=== PATIENT | male | born 1990 | race Caucasian/White ===

== ENCOUNTER 2019-02-04 21:14 | Emergency (ER) | payer MEDICAID ==
[~2019-02-04] VITALS: Ht 193 cm; Wt 107.5 kg
[~2019-02-04 21:14] MED LIST: ARIP5TAB13 PO; ATOM80CA PO; ESCI20TA10 PO; LISD30CA5 PO; LITH450T PO; SULF-169 PO
[2019-02-04 21:17] VITALS: BP 174/93
--- NOTE | 2019-02-04 21:26 | NUR ---
PT HERE WITH SIGNIFICANT OTHER, NOTES THAT APPROX 2 HOURS AGO HE GOT ANGRY AND PUNCHED A WALL, HAND SWOLLEN, ICE PACK GIVEN. RADIOLOGY TO BEDSIDE.
[2019-02-04] MEDS ORDERED: HYDROcodone/APAP 5/325 TABLET ONE (21:49)
[2019-02-04] MEDS ORDERED: HYDROcodone/APAP 5/325 TABLET PO ONE (22:00)
== END 2019-02-04 22:26 | disposition home or self-care (01) ==
LOC: ED 22:24
DX: S63.263A Dislocation of metacarpophalangeal joint of left middle finger, initial encounter (principal); S63.265A Dislocation of metacarpophalangeal joint of left ring finger, initial encounter; S60.222A Contusion of left hand, initial encounter; X58.XXXA Exposure to other specified factors, initial encounter; Y93.89 Activity, other specified; Y92.89 Other specified places as the place of occurrence of the external cause; Y99.8 Other external cause status
CPT/HCPCS: 29125; 99283